=== PATIENT | male | born 1950 | race Caucasian/White ===

== ENCOUNTER 2019-04-06 09:54 | Emergency (ER) | payer OTHER ==
[2019-04-06 09:58] VITALS: BP 147/84; PULSE 84; TEMP 98; BMI 34.4
--- NOTE | 2019-04-06 10:16 | PDOC ---
History of Present Illness - General Chief Complaint: Foreign Body (FB) Stated Complaint: FOREIGN OBJECT IN LEFT FOOT Time Seen by Provider: 04/06/19 10:04 History Source: Patient Exam Limitations: Clinical Condition - History of Present Illness Initial Comments: 04/06/19 10:15 Patient with no significant past medical history present with complaint of feeling of foreign body to bottom of left foot status post stepping on a broken piece of glass yesterday. Patient report he broke a bottle of olive oil glass which he cleaned it up by mother had a tiny piece left on the flu which is stopped on yesterday. Patient reported last tetanus vaccine 5 years ago. Denies any other symptoms Timing/Duration: 24 hours Past History - Past Medical History Allergies/Adverse Reactions: Allergies Allergy/AdvReac Type Severity Reaction Status Date / Time No Known Allergies Allergy Verified 04/06/19 09:57 Home Medications: Ambulatory Orders NK [No Known Home Medication] 07/08/16 COPD: No - Suicide/Smoking/Psychosocial Hx Smoking Status: No Smoking History: Never smoked Number of Cigarettes Smoked Daily: 0 Review of Systems - Review of Systems Able to Perform ROS?: Yes Is the patient limited Micronesian proficient: No Constitutional: No: Chills, Fever HEENTM: No: Symptoms Reported Respiratory: No: Symptoms reported Cardiac (ROS): No: Symptoms Reported ABD/GI: No: Symptoms Reported Musculoskeletal: Yes: Symptoms Reported, See HPI, Muscle Pain (bottom of left foot) Integumentary: Yes: Symptoms Reported, See HPI, Other (puncutre wound to bottom of left foot) Neurological: No: Symptoms reported All Other Systems: Reviewed and Negative *Physical Exam - Vital Signs Last Vital Signs Temp Pulse Resp BP Pulse Ox 98 F 84 18 147/84 99 04/06/19 09:55 04/06/19 09:55 04/06/19 09:55 04/06/19 09:55 04/06/19 09:55 - Physical Exam Comments: 04/06/19 10:13 GENERAL: Well developed, well nourished. Awake and alert. No acute distress. PULMONARY: No evidence of respiratory distress. MUSCULOSKELETAL : mild tenderness over over a small 1 mm area of puncture wound to sole of left foot over distal fourth and fifth metatarsals. No discharge from site. No skin erythema. No bony deformities SKIN: Warm and dry. Normal capillary refill. Tiny 1 mm entry puncture wound to sole of left foot over distal fourth and fifth metatarsals. NEUROLOGICAL: Alert, awake, appropriate. No motor deficits in the lower extremities. Gait is normal without ataxia. PSYCHIATRIC: Cooperative. Good eye contact. Appropriate mood and affect. General Appearance: Yes: Nourished, Appropriately Dressed. No: Apparent Distress ED Treatment Course - RADIOLOGY Radiology Studies Ordered: Category Date Time Status FOOT-LEFT [RAD] Stat Radiology 04/06/19 10:04 Ordered Medical Decision Making - Medical Decision Making 04/06/19 10:15 Patient with no significant past medical history present with complaint of feeling of foreign body to bottom of left foot status post stepping on a broken piece of glass yesterday. Patient report he broke a bottle of olive oil glass which he cleaned it up by mother had a tiny piece left on the flu which is stopped on yesterday. Patient reported last tetanus vaccine 5 years ago. Denies any other symptoms Exam significant for 1 mm area of entry wound to sole of left foot over distal fourth and fifth metatarsal. No skin erythema or swelling. X-ray of left foot ordered to evaluate for foreign body 04/06/19 10:59 Tiny piece of glass seen in soft tissue of sole of left foot on x-ray. Glass removed without complication after area infiltrated with 1 mL 1% lidocaine which pushed out the glass and was able to removed with forcep without complication. Bacitracin applied to wound and wound covered adhesive bandage. Patient tolerated procedure well. Patient indicated on home wound care is stable for discharge. *DC/Admit/Observation/Transfer Diagnosis at time of Disposition: Foreign body in left foot Qualifiers: Encounter type: initial encounter Qualified Code(s): S90.852A - Superficial foreign body, left foot, initial encounter - Discharge Dispostion Disposition: HOME Condition at time of disposition: Stable Decision to Admit order: No - Referrals Referrals: Isaias Barron MD [Primary Care Provider] - - Patient Instructions Printed Discharge Instructions: DI for Removal of Foreign Body From Skin Additional Instructions: Apply bacitracin or neosporin to wound under left foot twice a day until healed. Take motrin as needed for pain - Post Discharge Activity
[2019-04-06] MEDS ORDERED: BACITRACIN 15 GM TUBE TOPICAL OINTMENT ONE (10:40)
== END 2019-04-06 11:09 | disposition home or self-care (01) ==
LOC: JERFT 09:54
PROC: 0JCR0ZZ Extirpation of Matter from Left Foot Subcutaneous Tissue and Fascia, Open Approach (ICD-10-PCS; principal; 2019-04-06)
DX: S91.322A Laceration with foreign body, left foot, initial encounter (principal); X58.XXXA Exposure to other specified factors, initial encounter; Y93.89 Activity, other specified; Y92.89 Other specified places as the place of occurrence of the external cause
CPT/HCPCS: 20103; 73630-TC-LT; 99282-25